=== PATIENT | female | born 1990 | race Caucasian/White ===

== ENCOUNTER 2021-06-25 20:12 | Emergency (ER) | payer OTHER ==
[~2021-06-25] VITALS: Ht 170.2 cm; Wt 74.8 kg
--- OUTSIDE RECORDS SUMMARY | 2021-06-25 20:14 | XMS ---
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 [facility] VISIT COUNT (12 MO.) 1 LAYLA Hensley TOTAL 1 NOTE: Visits indicate total known visits. ED/UCC VISIT TRACKING (12 MO.) 06/25/2021 20:13 [facility] [place] TYPE: Emergency COMPLAINT: - SOB INPATIENT VISIT TRACKING (12 MO.) No inpatient visits to display in this time frame [email or web address]
[2021-06-25] MEDS ORDERED: ETONOGESTREL-E1 EACH VAGINAL (21:15)
[2021-06-25] MEDS ORDERED: HYDROXYZINE HCL25 MG PO (21:15)
[2021-06-25] MEDS ORDERED: BUPRENORPHINE HC8 MG SL (21:15)
== END 2021-06-25 23:41 | disposition home or self-care (01) ==
LOC: ED 20:12
DX: J18.9 Pneumonia, unspecified organism (principal); Z79.899 Other long term (current) drug therapy
CPT/HCPCS: 71045; 84703; 99283-25

== ENCOUNTER 2021-10-21 17:07 | Emergency (ER) | payer OTHER ==
[~2021-10-21] VITALS: Ht 170.2 cm; Wt 81.8 kg
[~2021-10-21 17:07] MED LIST: BUPRENORPHINE HC8 MG SL; ETONOGESTREL-E1 EACH VAGINAL; HYDROXYZINE HCL25 MG PO
--- OUTSIDE RECORDS SUMMARY | 2021-10-21 17:10 | XMS ---
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 [facility] VISIT COUNT (12 MO.) 1 Kuldip Hensley TOTAL 3 NOTE: Visits indicate total known visits. 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
--- NOTE | 2021-10-21 18:32 | EKG ---
[facility] [address] [place] [address] Signed Normal sinus rhythm Nonspecific T wave abnormality Abnormal ECG No previous ECGs available Confirmed by GHISLAINE ROSARIO MD ([id number] on 10/21/2021 6:32:04 PM Electronically Signed By: GHISLAINE ROSARIO MD 10/21/211831 PATIENT NAME: BETTY SMITH Electrocardiogram DATE OF : 86 PHYSICIAN: GHISLAINE ROSARIO MD REPORT #: [id number] REPORT IS CONFIDENTIAL AND NOT TO BE RELEASED WITHOUT AUTHORIZATION
== END 2021-10-21 19:55 | disposition home or self-care (01) ==
LOC: ED 17:07
DX: R07.89 Other chest pain (principal); Z88.8 Allergy status to other drugs, medicaments and biological substances; Z79.899 Other long term (current) drug therapy
CPT/HCPCS: 36415; 71045; 80053; 84484; 85025; 93005; 93010; 99285-25